=== PATIENT | male | born 1955 | race Caucasian/White ===

== ENCOUNTER 2016-07-09 08:00 | Outpatient (CLI) | payer MEDICAID | END 2016-07-09 08:01 | disposition home or self-care (01) | DX: I48.2 Chronic atrial fibrillation (principal) ==

== ENCOUNTER 2016-07-23 08:00 | Outpatient (CLI) | payer MEDICAID | END 2016-07-23 08:01 | disposition home or self-care (01) | DX: I48.2 Chronic atrial fibrillation (principal) ==

== ENCOUNTER 2016-07-30 09:39 | Outpatient (CLI) | payer MEDICAID | END 2016-07-30 09:40 | disposition home or self-care (01) | DX: I48.2 Chronic atrial fibrillation (principal) ==

== ENCOUNTER 2016-08-06 11:17 | Outpatient (CLI) | payer MEDICAID | END 2016-08-06 11:18 | disposition home or self-care (01) | DX: I48.2 Chronic atrial fibrillation (principal) ==

== ENCOUNTER 2016-08-13 10:34 | Outpatient (CLI) | payer MEDICAID | END 2016-08-13 10:35 | disposition home or self-care (01) | DX: I48.2 Chronic atrial fibrillation (principal) ==

== ENCOUNTER 2016-08-20 08:10 | Outpatient (CLI) | payer MEDICAID | END 2016-08-20 08:11 | disposition home or self-care (01) | DX: I48.2 Chronic atrial fibrillation (principal) ==

== ENCOUNTER 2016-08-20 08:15 | Outpatient (CLI) | payer MEDICAID | END 2016-08-20 08:16 | disposition home or self-care (01) | DX: E11.9 Type 2 diabetes mellitus without complications (principal) ==

== ENCOUNTER 2016-09-02 15:52 | Outpatient (CLI) | payer MEDICAID | END 2016-09-02 15:53 | disposition home or self-care (01) | DX: I48.2 Chronic atrial fibrillation (principal) ==

== ENCOUNTER 2016-09-10 09:11 | Outpatient (CLI) | payer MEDICAID | END 2016-09-10 09:12 | disposition home or self-care (01) | DX: I48.2 Chronic atrial fibrillation (principal) ==

== ENCOUNTER 2016-09-17 15:14 | Outpatient (CLI) | payer MEDICAID | END 2016-09-17 15:15 | disposition home or self-care (01) | DX: I48.2 Chronic atrial fibrillation (principal) ==

== ENCOUNTER 2016-10-01 11:04 | Outpatient (CLI) | payer MEDICAID | END 2016-10-01 11:05 | disposition home or self-care (01) | DX: I48.2 Chronic atrial fibrillation (principal) ==

== ENCOUNTER 2016-10-15 08:00 | Outpatient (CLI) | payer MEDICAID | END 2016-10-15 08:01 | disposition home or self-care (01) | DX: I48.2 Chronic atrial fibrillation (principal) ==

== ENCOUNTER 2016-10-22 10:13 | Outpatient (CLI) | payer MEDICAID | END 2016-10-22 10:14 | disposition home or self-care (01) | DX: I48.2 Chronic atrial fibrillation (principal) ==

== ENCOUNTER 2016-11-05 10:10 | Outpatient (CLI) | payer MEDICAID | END 2016-11-05 10:11 | disposition home or self-care (01) | DX: I48.2 Chronic atrial fibrillation (principal) ==

== ENCOUNTER 2016-11-12 11:03 | Outpatient (CLI) | payer MEDICAID | END 2016-11-12 11:04 | disposition home or self-care (01) | DX: I48.2 Chronic atrial fibrillation (principal) ==

== ENCOUNTER 2016-11-26 15:18 | Outpatient (CLI) | payer MEDICAID | END 2016-11-26 15:19 | disposition home or self-care (01) | LOC: LAB.N 15:18 | PROVIDERS: ATTEND Internal Medicine Cardiovascular Disease | DX: I48.2 Chronic atrial fibrillation (principal) | CPT/HCPCS: 85610 ==

== ENCOUNTER 2016-12-03 10:04 | Outpatient (CLI) | payer MEDICAID | END 2016-12-03 10:05 | disposition home or self-care (01) | DX: I48.2 Chronic atrial fibrillation (principal) ==

== ENCOUNTER 2016-12-17 10:47 | Outpatient (CLI) | payer MEDICAID | END 2016-12-17 10:48 | disposition home or self-care (01) | LOC: LAB.N 10:47 | PROVIDERS: ATTEND Internal Medicine Cardiovascular Disease | DX: I48.2 Chronic atrial fibrillation (principal) | CPT/HCPCS: 85610 ==

== ENCOUNTER 2016-12-24 08:00 | Outpatient (CLI) | payer MEDICAID | END 2016-12-24 08:01 | disposition home or self-care (01) | LOC: LAB.N 08:00 | PROVIDERS: ATTEND Internal Medicine Cardiovascular Disease | DX: I48.2 Chronic atrial fibrillation (principal) | CPT/HCPCS: 85610 ==

== ENCOUNTER 2016-12-24 08:00 | Outpatient (CLI) | payer MEDICAID ==
[2016-12-24 13:53] LABS: HEMOGLOBIN A1C 0.75 g/dL
== END 2016-12-24 08:01 | disposition home or self-care (01) ==
LOC: LAB.N 08:00
PROVIDERS: ATTEND Nurse Practitioner Gerontology
DX: E11.9 Type 2 diabetes mellitus without complications (principal)
CPT/HCPCS: 36415; 83036; 85610

== ENCOUNTER 2017-01-07 15:44 | Outpatient (CLI) | payer MEDICAID | END 2017-01-07 15:45 | disposition home or self-care (01) | LOC: LAB.N 15:44 | PROVIDERS: ATTEND Internal Medicine Cardiovascular Disease | DX: I48.2 Chronic atrial fibrillation (principal) | CPT/HCPCS: 85610 ==

== ENCOUNTER 2017-01-21 08:00 | Outpatient (CLI) | payer MEDICAID | END 2017-01-21 08:01 | disposition home or self-care (01) | LOC: LAB.N 08:00 | PROVIDERS: ATTEND Internal Medicine Cardiovascular Disease | DX: I48.2 Chronic atrial fibrillation (principal) | CPT/HCPCS: 85610 ==

== ENCOUNTER 2017-01-31 17:37 | Outpatient (CLI) | payer MEDICAID | END 2017-01-31 17:38 | disposition EMS.NT | LOC: EMS 17:37 | PROVIDERS: ATTEND Surgery | DX: S61.211A Laceration without foreign body of left index finger without damage to nail, initial encounter (principal); W26.8XXA Contact with other sharp object(s), not elsewhere classified, initial encounter ==

== ENCOUNTER 2017-01-31 17:50 | Emergency (ER) | payer MEDICAID ==
[2017-01-31 17:59] VITALS: BP 146/87
[2017-01-31] MEDS ORDERED: BUFFERED LIDOCAINE 10 ML SYRINGE ONE (18:35)
--- NOTE | 2017-01-31 18:42 | ED Physician Documentation ---
PD HPI UPPER EXT INJURY - Stated complaint Stated Complaint: LEFT FINGER LAC - Chief complaint Chief Complaint: Laceration - History obtained from History obtained from: Patient - History of Present Illness Location: Other (Left handed gentleman who is up-to-date on tetanus cut his left index finger on a can help pressing down on the garbage at home just prior to arrival.) Review of Systems Constitutional: reports: Reviewed and negative Throat: reports: Reviewed and negative Cardiac: reports: Reviewed and negative PD PAST MEDICAL HISTORY - Past Medical History Cardiovascular: Congestive heart failure, Coronary artery disease, [place] Respiratory: COPD Endocrine/Autoimmune: Type 2 diabetes - Past Surgical History Past Surgical History: Yes Cardiovascular: Coronary stent - Present Medications Home Medications: Ambulatory Orders Medication Instructions Recorded Confirmed Albuterol [Ventolin Hfa] 2 puffs INH Q4H PRN #1 inhaler 06/25/14 01/31/17 Aspirin 81 mg DAILY 06/25/14 01/31/17 Carvedilol 25 mg BID 06/25/14 01/31/17 Lisinopril [Zestril] 5 mg DAILY 06/25/14 01/31/17 Statin DAILY 06/25/14 06/25/14 Warfarin [Coumadin] 5 mg DAILY 06/25/14 01/31/17 metFORMIN [Glucophage] 500 mg BID 06/25/14 01/31/17 - Allergies Allergies/Adverse Reactions: Allergies Allergy/AdvReac Type Severity Reaction Status Date / Time No Known Drug Allergies Allergy Verified 06/25/14 14:11 - Social History Does the pt smoke?: No Smoking Status: Never smoker Does the pt drink ETOH?: No Does the pt have substance abuse?: No PD ED PE NORMAL - Vitals Vital signs reviewed: Yes - General General: Alert and oriented X 3, No acute distress - Extremities Extremities: Other (1 cm laceration on the dorsal surface of the left second finger at the level of the PIP on the radial side with normal extensor tendon function and neurovascular intact to the tip.) - Neuro Neuro: Alert and oriented X 3, Normal speech - Psych Psych: Normal mood, Normal affect Results - Vitals Vitals: Vital Signs - 24 hr 01/31/17 17:56 Temperature 36.7 C Heart Rate 91 Respiratory 18 Rate Blood Pressure 146/87 H O2 Saturation 98 Oxygen O2 Source Room air Procedures - Laceration (location) Left second finger Length in cm: 1 Wound type: Linear Neurovascular status: Sensory intact, Motor intact, Vascular intact Tendon involvement: Tendon intact Anesthesia: Lidocaine 1%, With bicarb Wound Preparation: Betadine, Irrigated copiously NS Skin layer closure: Nylon, Size #-0 - enter number (4-0), Sutures - enter # (3) Other: Tetanus UTD Complexity: Simple Departure - Departure Disposition: 01 Home, Self Care Clinical Impression: Laceration Condition: Good Record reviewed to determine appropriate education?: Yes Instructions: ED Laceration Hand Comments: Come back for any signs of infection which would include: Redness, swelling, drainage, increased pain, or fevers. Follow-up with your physician in 10-14 days for suture removal. Your blood pressure was elevated today on check into the emergency department. This does not mean that you have hypertension, it is a common phenomenon to come to the emergency department and have elevated blood pressure. I recommend that she see her primary care physician within the week to have it rechecked when you are feeling better.
== END 2017-01-31 19:00 | disposition home or self-care (01) ==
LOC: ED 17:50
DX: S61.211A Laceration without foreign body of left index finger without damage to nail, initial encounter (principal); W26.8XXA Contact with other sharp object(s), not elsewhere classified, initial encounter; Y92.010 Kitchen of single-family (private) house as the place of occurrence of the external cause; I50.9 Heart failure, unspecified; I25.2 Old myocardial infarction; I25.10 Atherosclerotic heart disease of native coronary artery without angina pectoris; J44.9 Chronic obstructive pulmonary disease, unspecified; E11.9 Type 2 diabetes mellitus without complications; Z79.84 Long term (current) use of oral hypoglycemic drugs; Z79.01 Long term (current) use of anticoagulants; Z79.82 Long term (current) use of aspirin
CPT/HCPCS: 12001; 99282

== ENCOUNTER 2017-02-04 08:47 | Outpatient (CLI) | payer MEDICAID | END 2017-02-04 08:48 | disposition home or self-care (01) | LOC: LAB.N 08:47 | PROVIDERS: ATTEND Internal Medicine Cardiovascular Disease | DX: I48.2 Chronic atrial fibrillation (principal) | CPT/HCPCS: 85610 ==

== ENCOUNTER 2017-02-11 08:00 | Outpatient (CLI) | payer MEDICAID | END 2017-02-11 08:01 | disposition home or self-care (01) | LOC: LAB.N 08:00 | PROVIDERS: ATTEND Internal Medicine Cardiovascular Disease | DX: I48.2 Chronic atrial fibrillation (principal) | CPT/HCPCS: 85610 ==

== ENCOUNTER 2017-02-23 08:17 | Outpatient (CLI) | payer MEDICAID | END 2017-02-23 08:18 | disposition home or self-care (01) | LOC: LAB.N 08:17 | PROVIDERS: ATTEND Internal Medicine Cardiovascular Disease | DX: I48.2 Chronic atrial fibrillation (principal) | CPT/HCPCS: 85610 ==

== ENCOUNTER 2017-03-18 10:20 | Outpatient (CLI) | payer MEDICAID | END 2017-03-18 10:21 | disposition home or self-care (01) | LOC: LAB.N 10:20 | PROVIDERS: ATTEND Internal Medicine Cardiovascular Disease | DX: I48.2 Chronic atrial fibrillation (principal) | CPT/HCPCS: 85610 ==

== ENCOUNTER 2017-03-31 08:14 | Outpatient (CLI) | payer MEDICAID | END 2017-03-31 08:15 | disposition home or self-care (01) | LOC: LAB.N 08:14 | PROVIDERS: ATTEND Internal Medicine Cardiovascular Disease | DX: I48.2 Chronic atrial fibrillation (principal) | CPT/HCPCS: 85610 ==

== ENCOUNTER 2017-04-08 15:29 | Outpatient (CLI) | payer MEDICAID | END 2017-04-08 15:30 | disposition home or self-care (01) | LOC: LAB.N 15:29 | PROVIDERS: ATTEND Nurse Practitioner Gerontology | DX: Z79.01 Long term (current) use of anticoagulants (principal) | CPT/HCPCS: 85610 ==

== ENCOUNTER 2017-04-22 11:03 | Outpatient (CLI) | payer MEDICAID | END 2017-04-22 11:04 | disposition home or self-care (01) | LOC: LAB.N 11:03 | PROVIDERS: ATTEND Nurse Practitioner Gerontology | DX: I48.2 Chronic atrial fibrillation (principal) | CPT/HCPCS: 85610 ==

== ENCOUNTER 2017-04-29 09:56 | Outpatient (CLI) | payer MEDICAID | END 2017-04-29 09:57 | disposition home or self-care (01) | LOC: LAB.N 09:56 | PROVIDERS: ATTEND Nurse Practitioner Gerontology | DX: I48.2 Chronic atrial fibrillation (principal) | CPT/HCPCS: 85610 ==

== ENCOUNTER 2017-05-05 14:10 | Outpatient (CLI) | payer MEDICAID | END 2017-05-05 14:11 | LOC: LAB.N 14:10 | PROVIDERS: ATTEND Nurse Practitioner Gerontology | DX: I48.2 Chronic atrial fibrillation (principal) | CPT/HCPCS: 85610 ==

== ENCOUNTER 2017-05-20 09:49 | Outpatient (CLI) | payer MEDICAID ==
[2017-05-20 14:12] LABS: HEMOGLOBIN A1C 0.69 g/dL
[2017-05-23 15:11] LABS: TEST RESULT REPORT
== END 2017-05-20 09:50 | disposition home or self-care (01) ==
LOC: LAB.N 09:49
PROVIDERS: ATTEND Nurse Practitioner Gerontology
DX: R05 Cough (principal); I48.2 Chronic atrial fibrillation; E11.9 Type 2 diabetes mellitus without complications
CPT/HCPCS: 36415; 81599; 83036; 85610; 86003

== ENCOUNTER 2017-06-03 15:14 | Outpatient (CLI) | payer MEDICAID | END 2017-06-03 15:15 | disposition home or self-care (01) | LOC: LAB.N 15:14 | PROVIDERS: ATTEND Nurse Practitioner Gerontology | DX: I48.2 Chronic atrial fibrillation (principal) | CPT/HCPCS: 85610 ==

== ENCOUNTER 2017-06-10 13:54 | Outpatient (CLI) | payer MEDICAID | END 2017-06-10 13:55 | disposition home or self-care (01) | LOC: LAB.N 13:54 | PROVIDERS: ATTEND Nurse Practitioner Gerontology | DX: I48.2 Chronic atrial fibrillation (principal) | CPT/HCPCS: 85610 ==

== ENCOUNTER 2017-07-01 11:02 | Outpatient (CLI) | payer MEDICAID | END 2017-07-01 11:03 | disposition home or self-care (01) | LOC: LAB.N 11:02 | PROVIDERS: ATTEND Nurse Practitioner Gerontology | DX: I48.2 Chronic atrial fibrillation (principal) | CPT/HCPCS: 85610 ==

== ENCOUNTER 2017-07-08 15:25 | Outpatient (CLI) | payer MEDICAID | END 2017-07-08 15:26 | disposition home or self-care (01) | LOC: LAB.N 15:25 | PROVIDERS: ATTEND Nurse Practitioner Gerontology | DX: I48.2 Chronic atrial fibrillation (principal) | CPT/HCPCS: 85610 ==

== ENCOUNTER 2017-07-15 08:00 | Outpatient (CLI) | payer MEDICAID | END 2017-07-15 08:01 | disposition home or self-care (01) | LOC: LAB.N 08:00 | PROVIDERS: ATTEND Nurse Practitioner Gerontology | DX: I48.2 Chronic atrial fibrillation (principal) | CPT/HCPCS: 85610 ==

== ENCOUNTER 2017-07-28 08:00 | Outpatient (CLI) | payer MEDICAID | END 2017-07-28 08:01 | disposition home or self-care (01) | LOC: LAB.N 08:00 | PROVIDERS: ATTEND Nurse Practitioner Gerontology | DX: I48.2 Chronic atrial fibrillation (principal) | CPT/HCPCS: 85610 ==

== ENCOUNTER 2017-08-12 14:12 | Outpatient (CLI) | payer MEDICAID | END 2017-08-12 14:13 | disposition home or self-care (01) | LOC: LAB.N 14:12 | PROVIDERS: ATTEND Nurse Practitioner Gerontology | DX: I48.2 Chronic atrial fibrillation (principal) | CPT/HCPCS: 85610 ==

== ENCOUNTER 2017-08-26 08:00 | Outpatient (CLI) | payer MEDICAID | END 2017-08-26 08:01 | disposition home or self-care (01) | LOC: LAB.N 08:00 | PROVIDERS: ATTEND Nurse Practitioner Gerontology | DX: I48.2 Chronic atrial fibrillation (principal) | CPT/HCPCS: 85610 ==

== ENCOUNTER 2017-09-02 08:52 | Outpatient (CLI) | payer MEDICAID | END 2017-09-02 08:53 | disposition home or self-care (01) | LOC: LAB.N 08:52 | PROVIDERS: ATTEND Nurse Practitioner Gerontology | DX: I48.2 Chronic atrial fibrillation (principal) | CPT/HCPCS: 85610 ==

== ENCOUNTER 2017-09-16 14:33 | Outpatient (CLI) | payer MEDICAID ==
[2017-09-16 19:09] LABS: BASOPHILS % (AUTO) 0.6 %; EOSINOPHILS # (AUTO) 0.2 10^3/uL (0.0-0.7); HGB - HEMOGLOBIN 12.9 g/dL (14.0-18.0); LYMPHOCYTES # (AUTO) 1.7 10^3/uL (1.5-3.5); LYMPHOCYTES % (AUTO) 25.7 %; MEAN CORPUSCULAR HEMOGLOBIN 29.4 pg (27.0-31.0); MEAN CORPUSCULAR HGB CONC 32.9 g/dL (32.0-36.0); MEAN CORPUSCULAR VOLUME 89.5 fL (80.0-94.0); MEAN PLATELET VOLUME 8.4 fL (7.4-11.4); MONOCYTES # (AUTO) 0.6 10^3/uL (0.0-1.0); NEUTROPHILS # (AUTO) 3.9 10^3/uL (1.5-6.6); NEUTROPHILS % (AUTO) 60.7 %; PLT - PLATELET COUNT 216 10^3/uL (130-450); RED BLOOD COUNT 4.37 10^6/uL (4.70-6.10); RED CELL DISTRIBUTION WIDTH 15.2 % (12.0-15.0); WHITE BLOOD COUNT 6.4 x10^3/uL (4.8-10.8)
[2017-09-16 19:36] LABS: ALBUMIN 4.2 g/dL (3.2-5.5); ALBUMIN/GLOBULIN RATIO 1.8 (1.0-2.2); ALKALINE PHOSPHATASE 56 IU/L (42-121); ALT ALANINE AMINOTRANSFERASE 30 IU/L (10-60); AST ASPARTATE AMINOTRANSFERASE 23 IU/L (10-42); BILIRUBIN,TOTAL 0.8 mg/dL (0.2-1.0); BUN - BLOOD UREA NITROGEN 15 mg/dL (6-20); CALCIUM 9.1 mg/dL (8.5-10.3); CARBON DIOXIDE - CO2 25 mmol/L (21-32); CHLORIDE 100 mmol/L (101-111); CHOLESTEROL 100 mg/dL; GFR - MDRD 76 (>89); GLUCOSE 109 mg/dL (70-100); HDL CHOLESTEROL 33 mg/dL; LDL CHOLESTEROL,CALCULATED 27 mg/dL; LDL/HDL RATIO 0.8 (<3.6); SODIUM 132 mmol/L (135-145); TOTAL PROTEIN 6.6 g/dL (6.7-8.2); VLDL CHOLESTEROL 40 mg/dL
[2017-09-16 19:39] LABS: HB2 TOTAL 13.7 g/dL; HEMOGLOBIN A1C 0.65 g/dL; HEMOGLOBIN A1C % 6.5 % (4.6-6.2)
[2017-09-16 19:55] LABS: PSA FREE < 0.005 ng/mL (0.16-2.81); PSA FREE % 50 % (25-100)
== END 2017-09-16 14:34 | disposition home or self-care (01) ==
LOC: LAB.N 14:33
PROVIDERS: ATTEND Nurse Practitioner Gerontology
DX: E78.5 Hyperlipidemia, unspecified (principal); I48.2 Chronic atrial fibrillation; E11.9 Type 2 diabetes mellitus without complications; I10 Essential (primary) hypertension; Z85.46 Personal history of malignant neoplasm of prostate
CPT/HCPCS: 36415; 80053; 80061; 83036; 83721; 84154; 85025; 85610

== ENCOUNTER 2017-09-23 14:45 | Outpatient (CLI) | payer MEDICAID | END 2017-09-23 14:46 | disposition home or self-care (01) | LOC: LAB.N 14:45 | PROVIDERS: ATTEND Nurse Practitioner Gerontology | DX: I48.2 Chronic atrial fibrillation (principal) | CPT/HCPCS: 85610 ==

== ENCOUNTER 2017-09-30 08:00 | Outpatient (CLI) | payer MEDICAID | END 2017-09-30 08:01 | disposition home or self-care (01) | LOC: LAB.N 08:00 | PROVIDERS: ATTEND Nurse Practitioner Gerontology | DX: I48.2 Chronic atrial fibrillation (principal) | CPT/HCPCS: 85610 ==

== ENCOUNTER 2017-10-07 10:39 | Outpatient (CLI) | payer MEDICAID | END 2017-10-07 10:40 | disposition home or self-care (01) | LOC: LAB.N 10:39 | PROVIDERS: ATTEND Nurse Practitioner Gerontology | DX: I48.2 Chronic atrial fibrillation (principal) | CPT/HCPCS: 85610 ==

== ENCOUNTER 2017-10-21 08:00 | Outpatient (CLI) | payer MEDICAID | END 2017-10-21 08:01 | disposition home or self-care (01) | LOC: LAB.N 08:00 | PROVIDERS: ATTEND Nurse Practitioner Gerontology | DX: I48.2 Chronic atrial fibrillation (principal) | CPT/HCPCS: 85610 ==

== ENCOUNTER 2017-11-04 08:00 | Outpatient (CLI) | payer MEDICAID | END 2017-11-04 08:01 | disposition home or self-care (01) | LOC: LAB.N 08:00 | PROVIDERS: ATTEND Nurse Practitioner Gerontology | DX: I48.2 Chronic atrial fibrillation (principal) | CPT/HCPCS: 85610 ==

== ENCOUNTER 2017-11-18 08:00 | Outpatient (CLI) | payer MEDICAID | END 2017-11-18 08:01 | disposition home or self-care (01) | LOC: LAB.N 08:00 | PROVIDERS: ATTEND Nurse Practitioner Gerontology | DX: I48.2 Chronic atrial fibrillation (principal) | CPT/HCPCS: 85610 ==

== ENCOUNTER 2017-11-25 09:00 | Outpatient (CLI) | payer MEDICAID | END 2017-11-25 09:01 | disposition home or self-care (01) | LOC: LAB.N 09:00 | PROVIDERS: ATTEND Nurse Practitioner Gerontology | DX: I48.2 Chronic atrial fibrillation (principal) | CPT/HCPCS: 85610 ==

== ENCOUNTER 2017-12-02 08:00 | Outpatient (CLI) | payer MEDICAID | END 2017-12-02 08:01 | disposition home or self-care (01) | LOC: LAB.N 08:00 | PROVIDERS: ATTEND Nurse Practitioner Gerontology | DX: I48.2 Chronic atrial fibrillation (principal) | CPT/HCPCS: 85610 ==

== ENCOUNTER 2017-12-16 09:12 | Outpatient (CLI) | payer MEDICAID | END 2017-12-16 09:13 | disposition home or self-care (01) | LOC: LAB.N 09:12 | PROVIDERS: ATTEND Nurse Practitioner Gerontology | DX: I48.2 Chronic atrial fibrillation (principal) | CPT/HCPCS: 85610 ==

== ENCOUNTER 2017-12-29 08:00 | Outpatient (CLI) | payer MEDICAID | END 2017-12-29 08:01 | disposition home or self-care (01) | LOC: LAB.N 08:00 | PROVIDERS: ATTEND Nurse Practitioner Gerontology | DX: I48.2 Chronic atrial fibrillation (principal) | CPT/HCPCS: 85610 ==

== ENCOUNTER 2018-01-06 14:10 | Outpatient (CLI) | payer MEDICAID | END 2018-01-06 14:11 | disposition home or self-care (01) | LOC: LAB.N 14:10 | PROVIDERS: ATTEND Nurse Practitioner Gerontology | DX: I48.2 Chronic atrial fibrillation (principal) | CPT/HCPCS: 85610 ==

== ENCOUNTER 2018-01-13 14:35 | Outpatient (CLI) | payer MEDICAID | END 2018-01-13 14:36 | disposition home or self-care (01) | LOC: LAB.N 14:35 | PROVIDERS: ATTEND Nurse Practitioner Gerontology | DX: I48.2 Chronic atrial fibrillation (principal) | CPT/HCPCS: 85610 ==

== ENCOUNTER 2018-01-27 13:55 | Outpatient (CLI) | payer MEDICAID | END 2018-01-27 13:56 | disposition home or self-care (01) | LOC: LAB.N 13:55 | PROVIDERS: ATTEND Nurse Practitioner Gerontology | DX: I48.2 Chronic atrial fibrillation (principal) | CPT/HCPCS: 85610 ==

== ENCOUNTER 2018-02-10 11:47 | Outpatient (CLI) | payer MEDICAID | END 2018-02-10 11:48 | disposition home or self-care (01) | LOC: LAB.N 11:47 | PROVIDERS: ATTEND Nurse Practitioner Gerontology | DX: I48.2 Chronic atrial fibrillation (principal) | CPT/HCPCS: 85610 ==

== ENCOUNTER 2018-02-24 08:26 | Outpatient (CLI) | payer MEDICAID | END 2018-02-24 08:27 | disposition home or self-care (01) | LOC: LAB.N 08:26 | PROVIDERS: ATTEND Nurse Practitioner Gerontology | DX: I48.2 Chronic atrial fibrillation (principal) | CPT/HCPCS: 85610 ==

== ENCOUNTER 2018-03-03 08:48 | Outpatient (CLI) | payer MEDICAID | END 2018-03-03 08:49 | disposition home or self-care (01) | LOC: LAB.N 08:48 | PROVIDERS: ATTEND Nurse Practitioner Gerontology | DX: I48.2 Chronic atrial fibrillation (principal) | CPT/HCPCS: 85610 ==

== ENCOUNTER 2018-03-10 08:31 | Outpatient (CLI) | payer MEDICAID | END 2018-03-10 08:32 | disposition home or self-care (01) | LOC: LAB.N 08:31 | PROVIDERS: ATTEND Nurse Practitioner Gerontology | DX: I48.2 Chronic atrial fibrillation (principal) | CPT/HCPCS: 85610 ==

== ENCOUNTER 2018-03-31 09:42 | Outpatient (CLI) | payer MEDICAID ==
[2018-03-31 12:26] LABS: CALCIUM 9.2 mg/dL (8.5-10.3); CREATININE 0.9 mg/dL (0.6-1.2)
[2018-03-31 12:42] LABS: HB2 TOTAL 14.2 g/dL; HEMOGLOBIN A1C 0.71 g/dL; HEMOGLOBIN A1C % 6.7 % (4.6-6.2)
== END 2018-03-31 09:43 | disposition home or self-care (01) ==
LOC: LAB.N 09:42
PROVIDERS: ATTEND Nurse Practitioner Gerontology
DX: E11.9 Type 2 diabetes mellitus without complications (principal); I48.2 Chronic atrial fibrillation
CPT/HCPCS: 36415; 80048; 83036; 85610

== ENCOUNTER 2018-04-06 14:04 | Outpatient (CLI) | payer MEDICAID | END 2018-04-06 14:05 | disposition home or self-care (01) | LOC: LAB.N 14:04 | PROVIDERS: ATTEND Nurse Practitioner Gerontology | DX: I48.2 Chronic atrial fibrillation (principal) | CPT/HCPCS: 85610 ==

== ENCOUNTER 2018-04-14 08:30 | Outpatient (CLI) | payer MEDICAID | END 2018-04-14 08:31 | disposition home or self-care (01) | LOC: LAB.N 08:30 | PROVIDERS: ATTEND Nurse Practitioner Gerontology | DX: I48.2 Chronic atrial fibrillation (principal) | CPT/HCPCS: 85610 ==

== ENCOUNTER 2018-04-28 08:03 | Outpatient (CLI) | payer MEDICAID | END 2018-04-28 08:04 | disposition home or self-care (01) | LOC: LAB.N 08:03 | PROVIDERS: ATTEND Nurse Practitioner Gerontology | DX: I48.2 Chronic atrial fibrillation (principal) | CPT/HCPCS: 85610 ==

== ENCOUNTER 2018-05-05 09:29 | Outpatient (CLI) | payer MEDICAID | END 2018-05-05 09:30 | disposition home or self-care (01) | LOC: LAB.N 09:29 | PROVIDERS: ATTEND Nurse Practitioner Gerontology | DX: I48.2 Chronic atrial fibrillation (principal) | CPT/HCPCS: 85610 ==

== ENCOUNTER 2018-05-19 11:43 | Outpatient (CLI) | payer MEDICAID | END 2018-05-19 11:44 | disposition home or self-care (01) | LOC: LAB.N 11:43 | PROVIDERS: ATTEND Nurse Practitioner Gerontology | DX: I48.2 Chronic atrial fibrillation (principal) | CPT/HCPCS: 85610 ==

== ENCOUNTER 2018-06-02 08:00 | Outpatient (CLI) | payer MEDICAID | END 2018-06-02 23:59 | disposition home or self-care (01) | LOC: LAB.N 08:00 | PROVIDERS: ATTEND Nurse Practitioner Gerontology | DX: I48.2 Chronic atrial fibrillation (principal) | CPT/HCPCS: 85610 ==

== ENCOUNTER 2018-06-09 08:00 | Outpatient (CLI) | payer MEDICAID | END 2018-06-09 23:59 | LOC: LAB.N 08:00 | PROVIDERS: ATTEND Nurse Practitioner Gerontology | DX: I48.2 Chronic atrial fibrillation (principal) | CPT/HCPCS: 85610 ==

== ENCOUNTER 2018-06-16 08:00 | Outpatient (CLI) | payer MEDICAID | END 2018-06-16 23:59 | disposition home or self-care (01) | LOC: LAB.N 08:00 | PROVIDERS: ATTEND Nurse Practitioner Gerontology | DX: I48.2 Chronic atrial fibrillation (principal) | CPT/HCPCS: 85610 ==

== ENCOUNTER 2018-06-30 14:28 | Outpatient (CLI) | payer MEDICAID | END 2018-06-30 23:59 | disposition home or self-care (01) | LOC: LAB.N 14:28 | PROVIDERS: ATTEND Nurse Practitioner Gerontology | DX: I48.2 Chronic atrial fibrillation (principal) | CPT/HCPCS: 85610 ==

== ENCOUNTER 2018-07-07 09:00 | Outpatient (CLI) | payer MEDICAID ==
[2018-07-07 14:41] LABS: BASOPHILS % (AUTO) 0.5 %; EOSINOPHILS # (AUTO) 0.2 10^3/uL (0.0-0.7); EOSINOPHILS % (AUTO) 2.7 %; HGB - HEMOGLOBIN 13.9 g/dL (14.0-18.0); LYMPHOCYTES # (AUTO) 1.7 10^3/uL (1.5-3.5); LYMPHOCYTES % (AUTO) 29.5 %; MEAN CORPUSCULAR HEMOGLOBIN 29.1 pg (27.0-31.0); MEAN CORPUSCULAR HGB CONC 33.3 g/dL (32.0-36.0); MEAN CORPUSCULAR VOLUME 87.4 fL (80.0-94.0); MEAN PLATELET VOLUME 8.4 fL (7.4-11.4); MONOCYTES # (AUTO) 0.5 10^3/uL (0.0-1.0); MONOCYTES % (AUTO) 9.8 %; NEUTROPHILS # (AUTO) 3.2 10^3/uL (1.5-6.6); NEUTROPHILS % (AUTO) 57.5 %; PLT - PLATELET COUNT 236 10^3/uL (130-450); RED BLOOD COUNT 4.78 10^6/uL (4.70-6.10); RED CELL DISTRIBUTION WIDTH 14.4 % (12.0-15.0); WHITE BLOOD COUNT 5.6 x10^3/uL (4.8-10.8)
[2018-07-07 15:07] LABS: CALCIUM 8.9 mg/dL (8.5-10.3); CARBON DIOXIDE - CO2 27 mmol/L (21-32); CHLORIDE 103 mmol/L (101-111); GLUCOSE 117 mg/dL (70-100); SODIUM 137 mmol/L (135-145)
[2018-07-07 16:22] LABS: ALBUMIN 4.1 g/dL (3.2-5.5); ALBUMIN/GLOBULIN RATIO 1.6 (1.0-2.2); ALKALINE PHOSPHATASE 62 IU/L (42-121); ALT ALANINE AMINOTRANSFERASE 32 IU/L (10-60); AST ASPARTATE AMINOTRANSFERASE 20 IU/L (10-42); BILIRUBIN,TOTAL 0.8 mg/dL (0.2-1.0); BUN - BLOOD UREA NITROGEN 16 mg/dL (6-20); CHOL/HDL RATIO 3.2 (<5.0); CHOLESTEROL 104 mg/dL; GFR - MDRD 76 (>89); HDL CHOLESTEROL 33 mg/dL; LDL CHOLESTEROL,CALCULATED 42 mg/dL; LDL/HDL RATIO 1.3 (<3.6); TOTAL PROTEIN 6.7 g/dL (6.7-8.2); VLDL CHOLESTEROL 29 mg/dL
== END 2018-07-07 23:59 | disposition home or self-care (01) ==
LOC: LAB.N 09:00
PROVIDERS: ATTEND Nurse Practitioner Gerontology
DX: I48.2 Chronic atrial fibrillation (principal); E78.5 Hyperlipidemia, unspecified; E11.9 Type 2 diabetes mellitus without complications; I10 Essential (primary) hypertension
CPT/HCPCS: 36415; 80053; 80061; 83721; 85025; 85610

== ENCOUNTER 2018-07-14 08:00 | Outpatient (CLI) | payer MEDICAID | END 2018-07-14 23:59 | disposition home or self-care (01) | LOC: LAB.N 08:00 | PROVIDERS: ATTEND Nurse Practitioner Gerontology | DX: I48.2 Chronic atrial fibrillation (principal) | CPT/HCPCS: 85610 ==

== ENCOUNTER 2018-07-24 08:00 | Outpatient (CLI) | payer MEDICAID | END 2018-07-24 23:59 | disposition home or self-care (01) | LOC: LAB.N 08:00 | PROVIDERS: ATTEND Nurse Practitioner Gerontology | DX: Z79.01 Long term (current) use of anticoagulants (principal) | CPT/HCPCS: 85610 ==

== ENCOUNTER 2018-07-31 08:00 | Outpatient (CLI) | payer MEDICAID ==
[2018-07-31 13:50] LABS: HB2 TOTAL 13.9 g/dL; HEMOGLOBIN A1C 0.61 g/dL; HEMOGLOBIN A1C % 6.2 % (4.6-6.2)
== END 2018-07-31 08:01 ==
LOC: LAB.N 08:00
PROVIDERS: ATTEND Nurse Practitioner Gerontology
DX: I48.2 Chronic atrial fibrillation (principal); E11.9 Type 2 diabetes mellitus without complications
CPT/HCPCS: 36415; 83036; 85610

== ENCOUNTER 2018-08-10 15:07 | Outpatient (CLI) | payer MEDICAID | END 2018-08-10 23:59 | disposition home or self-care (01) | LOC: LAB.N 15:07 | PROVIDERS: ATTEND Nurse Practitioner Gerontology | DX: I48.2 Chronic atrial fibrillation (principal) | CPT/HCPCS: 85610 ==

== ENCOUNTER 2018-08-25 08:00 | Outpatient (CLI) | payer MEDICAID | END 2018-08-25 23:59 | disposition home or self-care (01) | LOC: LAB.N 08:00 | PROVIDERS: ATTEND Nurse Practitioner Gerontology | DX: I48.2 Chronic atrial fibrillation (principal) | CPT/HCPCS: 85610 ==

== ENCOUNTER 2018-09-08 08:00 | Outpatient (CLI) | payer MEDICAID | END 2018-09-08 23:59 | disposition home or self-care (01) | LOC: LAB.N 08:00 | PROVIDERS: ATTEND Nurse Practitioner Gerontology | DX: I48.2 Chronic atrial fibrillation (principal) | CPT/HCPCS: 85610 ==

== ENCOUNTER 2018-10-03 14:18 | Outpatient (CLI) | payer MEDICAID | END 2018-10-03 23:59 | disposition home or self-care (01) | LOC: LAB.N 14:18 | PROVIDERS: ATTEND Nurse Practitioner Gerontology | DX: I48.2 Chronic atrial fibrillation (principal); M10.9 Gout, unspecified | CPT/HCPCS: 36415; 84550; 85610 ==

== ENCOUNTER 2018-10-13 08:00 | Outpatient (CLI) | payer MEDICAID | END 2018-10-13 23:59 | disposition home or self-care (01) | LOC: LAB.N 08:00 | PROVIDERS: ATTEND Nurse Practitioner Gerontology | DX: I48.2 Chronic atrial fibrillation (principal) | CPT/HCPCS: 85610 ==

== ENCOUNTER 2018-10-20 08:00 | Outpatient (CLI) | payer MEDICAID | END 2018-10-20 23:59 | disposition home or self-care (01) | LOC: LAB.N 08:00 | PROVIDERS: ATTEND Nurse Practitioner Gerontology | DX: I48.2 Chronic atrial fibrillation (principal) | CPT/HCPCS: 85610 ==

== ENCOUNTER 2018-10-31 08:00 | Outpatient (CLI) | payer MEDICAID ==
[2018-10-31 13:04] LABS: HB2 TOTAL 15.5 g/dL; HEMOGLOBIN A1C 0.67 g/dL; HEMOGLOBIN A1C % 6.1 % (4.6-6.2)
== END 2018-10-31 23:59 | disposition home or self-care (01) ==
LOC: LAB.N 08:00
PROVIDERS: ATTEND Nurse Practitioner Gerontology
DX: E11.9 Type 2 diabetes mellitus without complications (principal); I48.2 Chronic atrial fibrillation
CPT/HCPCS: 36415; 83036; 85610

== ENCOUNTER 2018-11-17 10:24 | Outpatient (CLI) | payer MEDICAID | END 2018-11-17 23:59 | disposition home or self-care (01) | LOC: LAB.N 10:24 | PROVIDERS: ATTEND Nurse Practitioner Gerontology | DX: I48.2 Chronic atrial fibrillation (principal) | CPT/HCPCS: 85610 ==

== ENCOUNTER 2018-12-01 08:00 | Outpatient (CLI) | payer MEDICAID | END 2018-12-01 23:59 | disposition home or self-care (01) | LOC: LAB.N 08:00 | PROVIDERS: ATTEND Nurse Practitioner Gerontology | DX: I48.2 Chronic atrial fibrillation (principal) | CPT/HCPCS: 85610 ==

== ENCOUNTER 2018-12-08 08:00 | Outpatient (CLI) | payer MEDICAID | END 2018-12-08 23:59 | disposition home or self-care (01) | LOC: LAB.N 08:00 | PROVIDERS: ATTEND Nurse Practitioner Gerontology | DX: I48.2 Chronic atrial fibrillation (principal) | CPT/HCPCS: 85610 ==

== ENCOUNTER 2018-12-22 08:00 | Outpatient (CLI) | payer MEDICAID | END 2018-12-22 23:59 | disposition home or self-care (01) | LOC: LAB.N 08:00 | PROVIDERS: ATTEND Nurse Practitioner Gerontology | DX: I48.2 Chronic atrial fibrillation (principal) | CPT/HCPCS: 85610 ==

== ENCOUNTER 2019-01-02 09:49 | Outpatient (CLI) | payer MEDICAID | END 2019-01-02 23:59 | disposition home or self-care (01) | LOC: LAB.N 09:49 | PROVIDERS: ATTEND Nurse Practitioner Gerontology | DX: I48.2 Chronic atrial fibrillation (principal) | CPT/HCPCS: 85610 ==

== ENCOUNTER 2019-01-19 08:00 | Outpatient (CLI) | payer MEDICAID | END 2019-01-19 23:59 | disposition home or self-care (01) | LOC: LAB.N 08:00 | PROVIDERS: ATTEND Nurse Practitioner Gerontology | DX: I48.2 Chronic atrial fibrillation (principal) | CPT/HCPCS: 85610 ==

== ENCOUNTER 2019-02-02 | Outpatient (CLI) | payer MEDICAID | END 2019-02-02 23:59 | disposition home or self-care (01) | DX: I48.2 Chronic atrial fibrillation (principal) ==

== ENCOUNTER 2019-02-09 11:19 | Outpatient (CLI) | payer MEDICAID | END 2019-02-09 23:59 | disposition home or self-care (01) | LOC: LAB.N 11:19 | PROVIDERS: ATTEND Nurse Practitioner Gerontology | DX: I48.2 Chronic atrial fibrillation (principal) | CPT/HCPCS: 85610 ==

== ENCOUNTER 2019-02-21 09:33 | Outpatient (CLI) | payer MEDICAID | END 2019-02-21 23:59 | disposition home or self-care (01) | LOC: LAB.N 09:33 | PROVIDERS: ATTEND Nurse Practitioner Gerontology | DX: I48.2 Chronic atrial fibrillation (principal) | CPT/HCPCS: 85610 ==

== ENCOUNTER 2019-03-02 08:00 | Outpatient (CLI) | payer MEDICAID | END 2019-03-02 23:59 | disposition home or self-care (01) | LOC: LAB.N 08:00 | PROVIDERS: ATTEND Nurse Practitioner Gerontology | DX: I48.2 Chronic atrial fibrillation (principal) | CPT/HCPCS: 85610 ==

== ENCOUNTER 2019-03-09 08:00 | Outpatient (CLI) | payer MEDICAID | END 2019-03-09 23:59 | disposition home or self-care (01) | LOC: LAB.N 08:00 | PROVIDERS: ATTEND Nurse Practitioner Gerontology | DX: I48.2 Chronic atrial fibrillation (principal) | CPT/HCPCS: 85610 ==

== ENCOUNTER 2019-03-16 08:00 | Outpatient (CLI) | payer MEDICAID | END 2019-03-16 23:59 | disposition home or self-care (01) | LOC: LAB.N 08:00 | PROVIDERS: ATTEND Nurse Practitioner Gerontology | DX: I48.2 Chronic atrial fibrillation (principal) | CPT/HCPCS: 85610 ==

== ENCOUNTER 2019-03-23 08:00 | Outpatient (CLI) | payer MEDICAID | END 2019-03-23 23:59 | disposition home or self-care (01) | LOC: LAB.N 08:00 | PROVIDERS: ATTEND Nurse Practitioner Gerontology | DX: I48.2 Chronic atrial fibrillation (principal) | CPT/HCPCS: 85610 ==

== ENCOUNTER 2019-03-30 15:08 | Outpatient (CLI) | payer MEDICAID | END 2019-03-30 23:59 | disposition home or self-care (01) | LOC: LAB.N 15:08 | PROVIDERS: ATTEND Nurse Practitioner Gerontology | DX: I48.2 Chronic atrial fibrillation (principal) | CPT/HCPCS: 85610 ==

== ENCOUNTER 2019-04-13 08:00 | Outpatient (CLI) | payer MEDICAID | END 2019-04-13 23:59 | LOC: LAB.N 08:00 | PROVIDERS: ATTEND Nurse Practitioner Gerontology | DX: I48.20 Chronic atrial fibrillation, unspecified (principal) | CPT/HCPCS: 85610 ==

== ENCOUNTER 2019-04-20 07:50 | Outpatient (CLI) | payer MEDICAID ==
[2019-04-20 13:02] LABS: HB2 TOTAL 15.2 g/dL; HEMOGLOBIN A1C 0.63 g/dL; HEMOGLOBIN A1C % 5.9 % (4.6-6.2)
== END 2019-04-20 23:59 | disposition home or self-care (01) ==
LOC: LAB.N 07:50
PROVIDERS: ATTEND Nurse Practitioner Gerontology
DX: E11.9 Type 2 diabetes mellitus without complications (principal); I48.20 Chronic atrial fibrillation, unspecified
CPT/HCPCS: 36415; 83036; 85610

== ENCOUNTER 2019-05-09 08:00 | Outpatient (CLI) | payer MEDICAID | END 2019-05-09 23:59 | disposition home or self-care (01) | LOC: LAB.N 08:00 | PROVIDERS: ATTEND Nurse Practitioner Gerontology | DX: I48.20 Chronic atrial fibrillation, unspecified (principal) | CPT/HCPCS: 85610 ==

== ENCOUNTER 2019-05-18 08:00 | Outpatient (CLI) | payer MEDICAID | END 2019-05-18 23:59 | disposition home or self-care (01) | LOC: LAB.N 08:00 | PROVIDERS: ATTEND Nurse Practitioner Gerontology | DX: I48.20 Chronic atrial fibrillation, unspecified (principal) | CPT/HCPCS: 85610 ==

== ENCOUNTER 2019-06-08 10:27 | Outpatient (CLI) | payer MEDICAID | END 2019-06-08 23:59 | disposition home or self-care (01) | LOC: LAB.N 10:27 | PROVIDERS: ATTEND Nurse Practitioner Gerontology | DX: I48.20 Chronic atrial fibrillation, unspecified (principal) | CPT/HCPCS: 85610 ==

== ENCOUNTER 2019-06-22 14:22 | Outpatient (CLI) | payer MEDICAID | END 2019-06-22 23:59 | disposition home or self-care (01) | LOC: LAB.N 14:22 | PROVIDERS: ATTEND Nurse Practitioner Gerontology | DX: I48.20 Chronic atrial fibrillation, unspecified (principal) | CPT/HCPCS: 85610 ==

== ENCOUNTER 2019-07-13 08:00 | Outpatient (CLI) | payer MEDICAID | END 2019-07-13 23:59 | disposition home or self-care (01) | LOC: LAB.N 08:00 | PROVIDERS: ATTEND Nurse Practitioner Gerontology | DX: I48.20 Chronic atrial fibrillation, unspecified (principal) | CPT/HCPCS: 85610 ==

== ENCOUNTER 2019-07-27 08:00 | Outpatient (CLI) | payer MEDICAID | END 2019-07-27 23:59 | disposition home or self-care (01) | LOC: LAB.N 08:00 | PROVIDERS: ATTEND Nurse Practitioner Gerontology | DX: I48.20 Chronic atrial fibrillation, unspecified (principal) | CPT/HCPCS: 85610 ==

== ENCOUNTER 2019-08-10 08:00 | Outpatient (CLI) | payer MEDICAID | END 2019-08-10 23:59 | disposition home or self-care (01) | LOC: LAB.N 08:00 | PROVIDERS: ATTEND Nurse Practitioner Gerontology | DX: I48.20 Chronic atrial fibrillation, unspecified (principal) | CPT/HCPCS: 85610 ==

== ENCOUNTER 2019-08-17 08:00 | Outpatient (CLI) | payer MEDICAID | END 2019-08-17 23:59 | disposition home or self-care (01) | LOC: LAB.N 08:00 | PROVIDERS: ATTEND Nurse Practitioner Gerontology | DX: I48.20 Chronic atrial fibrillation, unspecified (principal) | CPT/HCPCS: 85610 ==

== ENCOUNTER 2019-09-03 08:22 | Outpatient (CLI) | payer MEDICAID ==
[2019-09-03 13:30] LABS: ALBUMIN/GLOBULIN RATIO 1.5 (1.0-2.2); ALKALINE PHOSPHATASE 52 IU/L (42-121); ALT ALANINE AMINOTRANSFERASE 17 IU/L (10-60); AST ASPARTATE AMINOTRANSFERASE 13 IU/L (10-42); BILIRUBIN,TOTAL 0.8 mg/dL (0.2-1.0); BUN - BLOOD UREA NITROGEN 16 mg/dL (6-20); CALCIUM 9.1 mg/dL (8.5-10.3); CARBON DIOXIDE - CO2 27 mmol/L (21-32); CHLORIDE 104 mmol/L (101-111); CHOL/HDL RATIO 3.1 (<5.0); CHOLESTEROL 139 mg/dL; CREATININE 0.8 mg/dL (0.6-1.2); GFR - MDRD 98 (>89); GLUCOSE 129 mg/dL (70-100); HDL CHOLESTEROL 45 mg/dL; LDL CHOLESTEROL,CALCULATED 67 mg/dL; LDL/HDL RATIO 1.5 (<3.6); SODIUM 140 mmol/L (135-145); TOTAL PROTEIN 6.7 g/dL (6.7-8.2); VLDL CHOLESTEROL 27 mg/dL
== END 2019-09-03 23:59 | disposition home or self-care (01) ==
LOC: LAB.N 08:22
PROVIDERS: ATTEND Nurse Practitioner Gerontology
DX: E78.5 Hyperlipidemia, unspecified (principal); Z12.11 Encounter for screening for malignant neoplasm of colon; I48.0 Paroxysmal atrial fibrillation
CPT/HCPCS: 36415; 80053; 80061; 83721; 85610

== ENCOUNTER 2019-09-14 11:18 | Outpatient (CLI) | payer MEDICAID | END 2019-09-14 23:59 | disposition home or self-care (01) | LOC: LAB.N 11:18 | PROVIDERS: ATTEND Nurse Practitioner Gerontology | DX: I48.20 Chronic atrial fibrillation, unspecified (principal) | CPT/HCPCS: 85610 ==

== ENCOUNTER 2019-09-28 08:00 | Outpatient (CLI) | payer MEDICAID | END 2019-09-28 23:59 | disposition home or self-care (01) | LOC: LAB.N 08:00 | PROVIDERS: ATTEND Nurse Practitioner Gerontology | DX: I48.20 Chronic atrial fibrillation, unspecified (principal) | CPT/HCPCS: 85610 ==

== ENCOUNTER 2020-03-25 09:23 | Outpatient (CLI) | payer MEDICAID ==
--- NOTE | 2020-03-25 14:46 | XRAY Report ---
PROCEDURE: Cervical Spine 2 View INDICATIONS: NECK PAIN,CHRONIC TECHNIQUE: 2 view(s) of the cervical spine were acquired. COMPARISON: None. FINDINGS: Bones: No fractures or dislocations to the C7-T1 level. The lateral masses of C1 appear intact on t he odontoid view. No suspicious bony lesions. There is overall straightening of normal cervical cur vature. Multilevel uncovertebral arthropathy is present. Nonbridging anterior osteophytes are present at C5 and C6. Minimal disc space narrowing is noted at C5-6. Soft tissues: No prevertebral soft tissue swelling. IMPRESSION: Overall cervical straightening with uncovertebral arthropathy. Reviewed by: Ledy Mott MD on 03/25/2020 2:44 PM PDT Approved by: Ledy Mott MD on 03/25/2020 2:44 PM PDT Station ID: [id number]
== END 2020-03-25 09:24 | disposition home or self-care (01) ==
LOC: DI 09:23
PROVIDERS: ATTEND Nurse Practitioner
DX: M54.2 Cervicalgia (principal); G89.29 Other chronic pain
CPT/HCPCS: 72040

== ENCOUNTER 2020-03-28 08:48 | Outpatient (CLI) | payer MEDICAID ==
[2020-03-28 11:55] LABS: BASOPHILS % (AUTO) 0.5 %; EOSINOPHILS # (AUTO) 0.1 10^3/uL (0.0-0.7); EOSINOPHILS % (AUTO) 2.1 %; HGB - HEMOGLOBIN 15.7 g/dL (14.0-18.0); LYMPHOCYTES # (AUTO) 1.2 10^3/uL (1.5-3.5); LYMPHOCYTES % (AUTO) 18.9 %; MEAN CORPUSCULAR HEMOGLOBIN 30.6 pg (27.0-31.0); MEAN CORPUSCULAR HGB CONC 31.7 g/dL (32.0-36.0); MEAN CORPUSCULAR VOLUME 96.5 fL (80.0-94.0); MEAN PLATELET VOLUME 10.5 fL (7.4-11.4); MONOCYTES # (AUTO) 0.5 10^3/uL (0.0-1.0); MONOCYTES % (AUTO) 8.4 %; NEUTROPHILS # (AUTO) 4.2 10^3/uL (1.5-6.6); NEUTROPHILS % (AUTO) 69.4 %; PLT - PLATELET COUNT 205 10^3/uL (130-450); RED BLOOD COUNT 5.13 10^6/uL (4.70-6.10); RED CELL DISTRIBUTION WIDTH 13.4 % (12.0-15.0); WHITE BLOOD COUNT 6.1 x10^3/uL (4.8-10.8)
[2020-03-28 12:15] LABS: ALBUMIN 4.1 g/dL (3.2-5.5); ALBUMIN/GLOBULIN RATIO 1.5 (1.0-2.2); ALKALINE PHOSPHATASE 64 IU/L (42-121); ALT ALANINE AMINOTRANSFERASE 27 IU/L (10-60); AST ASPARTATE AMINOTRANSFERASE 22 IU/L (10-42); BILIRUBIN,TOTAL 0.7 mg/dL (0.2-1.0); BUN - BLOOD UREA NITROGEN 14 mg/dL (6-20); CALCIUM 9.2 mg/dL (8.5-10.3); CARBON DIOXIDE - CO2 28 mmol/L (21-32); CHLORIDE 104 mmol/L (101-111); CHOL/HDL RATIO 2.9 (<5.0); CHOLESTEROL 153 mg/dL; CREATININE 0.8 mg/dL (0.6-1.2); GLUCOSE 136 mg/dL (70-100); HDL CHOLESTEROL 52 mg/dL; LDL CHOLESTEROL,CALCULATED 64 mg/dL; LDL/HDL RATIO 1.2 (<3.6); SODIUM 140 mmol/L (135-145); TOTAL PROTEIN 6.9 g/dL (6.7-8.2); VLDL CHOLESTEROL 37 mg/dL
[2020-03-28 12:30] LABS: HEMOGLOBIN A1c% 6.1 % (4.27-6.07)
== END 2020-03-28 08:49 | disposition home or self-care (01) ==
LOC: LAB.WCP 08:48
PROVIDERS: ATTEND Nurse Practitioner
DX: E11.9 Type 2 diabetes mellitus without complications (principal); I10 Essential (primary) hypertension; E78.5 Hyperlipidemia, unspecified; I48.91 Unspecified atrial fibrillation; Z79.01 Long term (current) use of anticoagulants; I25.10 Atherosclerotic heart disease of native coronary artery without angina pectoris; M10.9 Gout, unspecified; J44.9 Chronic obstructive pulmonary disease, unspecified; Z85.46 Personal history of malignant neoplasm of prostate
CPT/HCPCS: 36415; 80050; 80061; 82043; 82570; 83036; 83721; 84153

== ENCOUNTER 2020-04-04 08:00 | Outpatient (CLI) | payer MEDICAID ==
[2020-04-04 13:39] LABS: MICROALBUM/CREATININE RATIO,UR 4.8 ug/mg (<30.0); MICROALBUMIN,URINE 0.5 mg/dL (0-300.0)
== END 2020-04-04 23:59 | disposition home or self-care (01) ==
LOC: LAB.R 08:00
PROVIDERS: ATTEND Nurse Practitioner
DX: E11.9 Type 2 diabetes mellitus without complications (principal)
CPT/HCPCS: 82043; 82274; 82570

== ENCOUNTER 2020-05-09 10:00 | Outpatient (CLI) | payer MEDICAID | END 2020-05-09 23:59 | disposition home or self-care (01) | LOC: LAB.R 10:00 | PROVIDERS: ATTEND Nurse Practitioner | DX: Z12.11 Encounter for screening for malignant neoplasm of colon (principal) | CPT/HCPCS: 82274 ==

== ENCOUNTER 2020-05-19 08:00 | Outpatient (CLI) | payer MEDICAID | END 2020-05-19 23:59 | disposition home or self-care (01) | LOC: LAB.R 08:00 | PROVIDERS: ATTEND Nurse Practitioner | DX: Z12.11 Encounter for screening for malignant neoplasm of colon (principal) | CPT/HCPCS: 82274 ==

== ENCOUNTER 2020-08-22 08:47 | Outpatient (CLI) | payer MEDICAID ==
[2020-08-22 12:54] LABS: ALBUMIN 4.4 g/dL (3.2-5.5); ALBUMIN/GLOBULIN RATIO 1.6 (1.0-2.2); BILIRUBIN,TOTAL 0.9 mg/dL (0.2-1.0); CALCIUM 9.5 mg/dL (8.5-10.3); CREATININE 0.9 mg/dL (0.6-1.2); TOTAL PROTEIN 7.2 g/dL (6.7-8.2)
[2020-08-22 12:58] LABS: HEMOGLOBIN A1c% 6.2 % (4.27-6.07)
== END 2020-08-22 23:59 | disposition home or self-care (01) ==
LOC: LAB.WCP 08:47
PROVIDERS: ATTEND Nurse Practitioner
DX: E11.9 Type 2 diabetes mellitus without complications (principal)
CPT/HCPCS: 36415; 80053; 83036

== ENCOUNTER 2021-03-13 08:11 | Outpatient (CLI) | payer MEDICAID ==
[2021-03-13 13:26] LABS: BASOPHILS % (AUTO) 0.7 %; EOSINOPHILS # (AUTO) 0.1 10^3/uL (0.0-0.7); EOSINOPHILS % (AUTO) 2.3 %; HCT - HEMATOCRIT 46.4 % (42.0-52.0); HGB - HEMOGLOBIN 14.9 g/dL (14.0-18.0); LYMPHOCYTES # (AUTO) 1.4 10^3/uL (1.5-3.5); LYMPHOCYTES % (AUTO) 22.4 %; MEAN CORPUSCULAR HEMOGLOBIN 30.5 pg (27.0-31.0); MEAN CORPUSCULAR HGB CONC 32.1 g/dL (32.0-36.0); MEAN CORPUSCULAR VOLUME 95.1 fL (80.0-94.0); MEAN PLATELET VOLUME 10.6 fL (7.4-11.4); MONOCYTES # (AUTO) 0.6 10^3/uL (0.0-1.0); MONOCYTES % (AUTO) 9.9 %; NEUTROPHILS # (AUTO) 3.9 10^3/uL (1.5-6.6); NEUTROPHILS % (AUTO) 64.4 %; PLT - PLATELET COUNT 249 10^3/uL (130-450); RED BLOOD COUNT 4.88 10^6/uL (4.70-6.10); RED CELL DISTRIBUTION WIDTH 13.6 % (12.0-15.0); WHITE BLOOD COUNT 6.1 x10^3/uL (4.8-10.8)
[2021-03-13 13:54] LABS: THYROID STIMULATING HORMONE 2.63 uIU/mL (0.34-5.60)
[2021-03-13 14:06] LABS: ESTIMATED AVERAGE GLUCOSE 128 mg/dL (70-100); HEMOGLOBIN A1c% 6.1 % (4.27-6.07)
[2021-03-13 14:14] LABS: ALBUMIN 4.6 g/dL (3.2-5.5); ALBUMIN/GLOBULIN RATIO 1.6 (1.0-2.2); ALKALINE PHOSPHATASE 53 IU/L (42-121); ALT ALANINE AMINOTRANSFERASE 25 IU/L (10-60); AST ASPARTATE AMINOTRANSFERASE 20 IU/L (10-42); BILIRUBIN,TOTAL 0.9 mg/dL (0.2-1.0); BUN - BLOOD UREA NITROGEN 12 mg/dL (6-20); CALCIUM 9.5 mg/dL (8.5-10.3); CARBON DIOXIDE - CO2 26 mmol/L (21-32); CHLORIDE 104 mmol/L (101-111); CHOL/HDL RATIO 3.4 (<5.0); CHOLESTEROL 169 mg/dL; CREATININE 0.9 mg/dL (0.6-1.2); GFR - MDRD 85 (>89); GLUCOSE 116 mg/dL (70-100); HDL CHOLESTEROL 49 mg/dL; LDL CHOLESTEROL,CALCULATED 90 mg/dL; LDL/HDL RATIO 1.8 (<3.6); POTASSIUM 5.1 mmol/L (3.5-5.0); SODIUM 140 mmol/L (135-145); TOTAL PROTEIN 7.4 g/dL (6.7-8.2); TRIGLYCERIDES 148 mg/dL; URIC ACID 8.1 mg/dL (2.6-7.2); VLDL CHOLESTEROL 30 mg/dL
[2021-03-13 14:44] LABS: CREATININE,URINE 55.3 mg/dL; MICROALBUM/CREATININE RATIO,UR 5.4 ug/mg (<30.0); MICROALBUMIN,URINE 0.3 mg/dL (0-300.0)
== END 2021-03-13 08:12 | disposition home or self-care (01) ==
LOC: LAB.N 08:11
PROVIDERS: ATTEND Nurse Practitioner
DX: E11.9 Type 2 diabetes mellitus without complications (principal); E78.5 Hyperlipidemia, unspecified; Z85.46 Personal history of malignant neoplasm of prostate; I48.91 Unspecified atrial fibrillation; M10.9 Gout, unspecified
CPT/HCPCS: 36415; 80050; 80053; 80061; 82043; 82570; 83036; 83721; 84153; 84550; 85025

== ENCOUNTER 2021-09-14 09:33 | Outpatient (CLI) | payer MEDICAID ==
[2021-09-14 14:25] LABS: ESTIMATED AVERAGE GLUCOSE 140 mg/dL (70-100); HEMOGLOBIN A1c% 6.5 % (4.27-6.07)
== END 2021-09-14 09:34 | disposition home or self-care (01) ==
LOC: LAB.N 09:33
PROVIDERS: ATTEND Nurse Practitioner
DX: E11.9 Type 2 diabetes mellitus without complications (principal); M10.9 Gout, unspecified
CPT/HCPCS: 36415; 83036; 84550

== ENCOUNTER 2021-09-18 08:00 | Outpatient (CLI) | payer MEDICARE, MEDICAID | END 2021-09-18 23:59 | disposition home or self-care (01) | LOC: LAB.WCP 08:00 | PROVIDERS: ATTEND Nurse Practitioner | DX: I48.91 Unspecified atrial fibrillation (principal); Z79.01 Long term (current) use of anticoagulants ==

== ENCOUNTER 2021-09-25 08:00 | Outpatient (CLI) | payer MEDICARE, MEDICAID | END 2021-09-25 23:59 | disposition home or self-care (01) | LOC: LAB.WCP 08:00 | PROVIDERS: ATTEND Nurse Practitioner Family | DX: I48.91 Unspecified atrial fibrillation (principal); Z79.01 Long term (current) use of anticoagulants ==

== ENCOUNTER 2021-10-16 08:00 | Outpatient (CLI) | payer MEDICARE, MEDICAID | END 2021-10-16 23:59 | disposition home or self-care (01) | LOC: LAB.WCP 08:00 | PROVIDERS: ATTEND Nurse Practitioner | DX: I48.91 Unspecified atrial fibrillation (principal); Z79.01 Long term (current) use of anticoagulants ==

== ENCOUNTER 2021-10-30 08:00 | Outpatient (CLI) | payer MEDICARE, MEDICAID | END 2021-10-30 23:59 | disposition home or self-care (01) | LOC: LAB.WCP 08:00 | PROVIDERS: ATTEND Nurse Practitioner | DX: I48.91 Unspecified atrial fibrillation (principal); Z79.01 Long term (current) use of anticoagulants ==

== ENCOUNTER 2021-11-06 08:00 | Outpatient (CLI) | payer MEDICARE, MEDICAID | END 2021-11-06 23:59 | disposition home or self-care (01) | LOC: LAB.WCP 08:00 | PROVIDERS: ATTEND Nurse Practitioner | DX: I48.91 Unspecified atrial fibrillation (principal); Z79.01 Long term (current) use of anticoagulants ==

== ENCOUNTER 2021-11-13 08:00 | Outpatient (CLI) | payer MEDICARE, MEDICAID | END 2021-11-13 23:59 | disposition home or self-care (01) | LOC: LAB.WCP 08:00 | PROVIDERS: ATTEND Nurse Practitioner | DX: I48.91 Unspecified atrial fibrillation (principal); Z79.01 Long term (current) use of anticoagulants ==

== ENCOUNTER 2021-12-11 08:00 | Outpatient (CLI) | payer MEDICARE, MEDICAID | END 2021-12-11 23:59 | disposition home or self-care (01) | LOC: LAB.WCP 08:00 | PROVIDERS: ATTEND Nurse Practitioner | DX: I48.91 Unspecified atrial fibrillation (principal); Z79.01 Long term (current) use of anticoagulants ==

== ENCOUNTER → 2021-12-18 | Outpatient (CLI) | payer MEDICARE, MEDICAID | LOC: LAB.WCP 08:00 | PROVIDERS: ATTEND Nurse Practitioner | DX: I48.91 Unspecified atrial fibrillation (principal); Z79.01 Long term (current) use of anticoagulants ==

== ENCOUNTER 2021-12-24 10:58 | Outpatient (CLI) | payer MEDICARE, MEDICAID | END 2021-12-24 10:59 | disposition home or self-care (01) | LOC: LAB.N 10:58 | PROVIDERS: ATTEND Nurse Practitioner | DX: Z79.01 Long term (current) use of anticoagulants (principal) | CPT/HCPCS: 36416; 85610 ==

== ENCOUNTER → 2022-01-01 | Outpatient (CLI) | payer MEDICARE, MEDICAID | LOC: LAB.WCP 08:00 | PROVIDERS: ATTEND Nurse Practitioner | DX: I48.91 Unspecified atrial fibrillation (principal); Z79.01 Long term (current) use of anticoagulants ==

== ENCOUNTER 2022-02-26 08:00 | Outpatient (CLI) | payer MEDICARE, MEDICAID | END 2022-02-26 08:01 | disposition home or self-care (01) | LOC: LAB.WCP 08:00 | PROVIDERS: ATTEND Nurse Practitioner | DX: I48.91 Unspecified atrial fibrillation (principal); Z79.01 Long term (current) use of anticoagulants ==

== ENCOUNTER 2022-03-19 08:00 | Outpatient (CLI) | payer MEDICARE, MEDICAID | END 2022-03-19 23:59 | disposition home or self-care (01) | LOC: LAB.WCP 08:00 | PROVIDERS: ATTEND Nurse Practitioner | DX: I48.91 Unspecified atrial fibrillation (principal); Z79.01 Long term (current) use of anticoagulants ==

== ENCOUNTER 2022-03-26 08:00 | Outpatient (CLI) | payer MEDICARE, MEDICAID | END 2022-03-26 23:59 | disposition home or self-care (01) | LOC: LAB.WCP 08:00 | PROVIDERS: ATTEND Nurse Practitioner | DX: I48.91 Unspecified atrial fibrillation (principal); Z79.01 Long term (current) use of anticoagulants ==

== ENCOUNTER 2022-04-02 08:00 | Outpatient (CLI) | payer MEDICARE, MEDICAID | END 2022-04-02 23:59 | disposition home or self-care (01) | LOC: LAB.WCP 08:00 | PROVIDERS: ATTEND Nurse Practitioner | DX: I48.91 Unspecified atrial fibrillation (principal); Z79.01 Long term (current) use of anticoagulants ==

== ENCOUNTER 2022-04-16 08:00 | Outpatient (CLI) | payer MEDICARE, MEDICAID | END 2022-04-16 23:59 | disposition home or self-care (01) | LOC: LAB.WCP 08:00 | PROVIDERS: ATTEND Nurse Practitioner | DX: I48.91 Unspecified atrial fibrillation (principal); Z79.01 Long term (current) use of anticoagulants ==

== ENCOUNTER 2022-04-30 08:00 | Outpatient (CLI) | payer MEDICARE, MEDICAID | END 2022-04-30 23:59 | disposition home or self-care (01) | LOC: LAB.WCP 08:00 | PROVIDERS: ATTEND Nurse Practitioner | DX: I48.91 Unspecified atrial fibrillation (principal); Z79.01 Long term (current) use of anticoagulants ==

== ENCOUNTER 2022-05-14 08:00 | Outpatient (CLI) | payer MEDICARE, MEDICAID | END 2022-05-14 23:59 | disposition home or self-care (01) | LOC: LAB.WCP 08:00 | PROVIDERS: ATTEND Nurse Practitioner | DX: I48.91 Unspecified atrial fibrillation (principal); Z79.01 Long term (current) use of anticoagulants ==

== ENCOUNTER 2022-06-04 09:39 | Outpatient (CLI) | payer MEDICARE, MEDICAID | END 2022-06-04 09:40 | disposition home or self-care (01) | LOC: LAB 09:39 | PROVIDERS: ATTEND Nurse Practitioner | DX: I48.91 Unspecified atrial fibrillation (principal); Z79.01 Long term (current) use of anticoagulants | CPT/HCPCS: 36416; 85610 ==

== ENCOUNTER → 2022-06-09 | Outpatient (CLI) | payer MEDICARE, MEDICAID | LOC: LAB.WCP 08:00 | PROVIDERS: ATTEND Nurse Practitioner | DX: I48.91 Unspecified atrial fibrillation (principal); Z79.01 Long term (current) use of anticoagulants ==

== ENCOUNTER → 2022-06-18 | Outpatient (CLI) | payer MEDICARE, MEDICAID | LOC: LAB.WCP 08:00 | PROVIDERS: ATTEND Nurse Practitioner | DX: I48.91 Unspecified atrial fibrillation (principal); Z79.01 Long term (current) use of anticoagulants ==

== ENCOUNTER 2022-07-02 08:00 | Outpatient (CLI) | payer MEDICARE, MEDICAID | END 2022-07-02 23:59 | disposition home or self-care (01) | LOC: LAB.WCP 08:00 | PROVIDERS: ATTEND Nurse Practitioner | DX: I48.91 Unspecified atrial fibrillation (principal); Z79.01 Long term (current) use of anticoagulants ==

== ENCOUNTER → 2022-07-16 | Outpatient (CLI) | payer MEDICARE, MEDICAID | LOC: LAB.WCP 08:00 | PROVIDERS: ATTEND Nurse Practitioner | DX: I48.91 Unspecified atrial fibrillation (principal); Z79.01 Long term (current) use of anticoagulants ==

== ENCOUNTER 2022-07-23 08:17 | Outpatient (CLI) | payer MEDICARE, MEDICAID ==
[2022-07-23 12:53] LABS: BASOPHILS % (AUTO) 0.5 %; EOSINOPHILS # (AUTO) 0.2 10^3/uL (0.0-0.7); EOSINOPHILS % (AUTO) 1.9 %; HCT - HEMATOCRIT 45.9 % (42.0-52.0); HGB - HEMOGLOBIN 14.5 g/dL (14.0-18.0); LYMPHOCYTES # (AUTO) 1.3 10^3/uL (1.5-3.5); LYMPHOCYTES % (AUTO) 14.8 %; MEAN CORPUSCULAR HEMOGLOBIN 29.7 pg (27.0-31.0); MEAN CORPUSCULAR HGB CONC 31.6 g/dL (32.0-36.0); MEAN CORPUSCULAR VOLUME 93.9 fL (80.0-94.0); MEAN PLATELET VOLUME 10.6 fL (7.4-11.4); MONOCYTES # (AUTO) 0.8 10^3/uL (0.0-1.0); NEUTROPHILS # (AUTO) 6.2 10^3/uL (1.5-6.6); NEUTROPHILS % (AUTO) 73.3 %; PLT - PLATELET COUNT 263 10^3/uL (130-450); RED BLOOD COUNT 4.89 10^6/uL (4.70-6.10); RED CELL DISTRIBUTION WIDTH 14.1 % (12.0-15.0); WHITE BLOOD COUNT 8.4 x10^3/uL (4.8-10.8)
[2022-07-23 13:29] LABS: ALBUMIN 4.2 g/dL (3.2-5.5); ALBUMIN/GLOBULIN RATIO 1.4 (1.0-2.2); ALKALINE PHOSPHATASE 68 IU/L (42-121); ALT ALANINE AMINOTRANSFERASE 30 IU/L (10-60); AST ASPARTATE AMINOTRANSFERASE 21 IU/L (10-42); BILIRUBIN,TOTAL 1.1 mg/dL (0.2-1.0); BUN - BLOOD UREA NITROGEN 12 mg/dL (6-20); CALCIUM 9.1 mg/dL (8.5-10.3); CARBON DIOXIDE - CO2 30 mmol/L (21-32); CHLORIDE 101 mmol/L (101-111); CHOLESTEROL 118 mg/dL; CREATININE 0.8 mg/dL (0.6-1.2); GFR - MDRD 97 (>89); GLUCOSE 142 mg/dL (70-100); HDL CHOLESTEROL 40 mg/dL; LDL CHOLESTEROL,CALCULATED 48 mg/dL; LDL/HDL RATIO 1.2 (<3.6); POTASSIUM 4.7 mmol/L (3.5-5.0); SODIUM 139 mmol/L (135-145); TOTAL PROTEIN 7.2 g/dL (6.7-8.2); TRIGLYCERIDES 151 mg/dL; URIC ACID 8.1 mg/dL (2.6-7.2); VLDL CHOLESTEROL 30 mg/dL
[2022-07-23 13:35] LABS: CREATININE,URINE 200.3 mg/dL; MICROALBUM/CREATININE RATIO,UR 7.5 ug/mg (<30.0); MICROALBUMIN,URINE 1.5 mg/dL (0-300.0)
[2022-07-23 13:42] LABS: THYROID STIMULATING HORMONE 2.44 uIU/mL (0.34-5.60)
[2022-07-23 14:10] LABS: ESTIMATED AVERAGE GLUCOSE 134 mg/dL (70-100); HEMOGLOBIN A1c% 6.3 % (4.27-6.07)
== END 2022-07-23 08:18 | disposition home or self-care (01) ==
LOC: LAB.N 08:17
PROVIDERS: ATTEND Nurse Practitioner
DX: I10 Essential (primary) hypertension (principal); E78.5 Hyperlipidemia, unspecified; E11.9 Type 2 diabetes mellitus without complications; Z85.46 Personal history of malignant neoplasm of prostate; I48.91 Unspecified atrial fibrillation; M10.9 Gout, unspecified
CPT/HCPCS: 36415; 80053; 80061; 82043; 82570; 83036; 83721; 84153; 84443; 84550; 85025

== ENCOUNTER 2022-07-30 08:00 | Outpatient (CLI) | payer MEDICARE, MEDICAID | END 2022-07-30 23:59 | disposition home or self-care (01) | LOC: LAB.WCP 08:00 | PROVIDERS: ATTEND Family Medicine | DX: I48.91 Unspecified atrial fibrillation (principal); Z79.01 Long term (current) use of anticoagulants ==

== ENCOUNTER 2022-08-06 08:00 | Outpatient (CLI) | payer MEDICARE, MEDICAID | END 2022-08-06 23:59 | disposition home or self-care (01) | LOC: LAB.WCP 08:00 | PROVIDERS: ATTEND Nurse Practitioner | DX: I48.91 Unspecified atrial fibrillation (principal); Z79.01 Long term (current) use of anticoagulants ==

== ENCOUNTER 2022-08-13 08:00 | Outpatient (CLI) | payer MEDICARE, MEDICAID | END 2022-08-13 23:59 | disposition home or self-care (01) | LOC: LAB.WCP 08:00 | PROVIDERS: ATTEND Family Medicine | DX: I48.91 Unspecified atrial fibrillation (principal); Z79.01 Long term (current) use of anticoagulants ==

== ENCOUNTER 2022-09-10 08:00 | Outpatient (CLI) | payer MEDICARE, MEDICAID | END 2022-09-10 23:59 | disposition home or self-care (01) | LOC: LAB.N 08:00 | PROVIDERS: ATTEND Nurse Practitioner | DX: I48.91 Unspecified atrial fibrillation (principal); Z79.01 Long term (current) use of anticoagulants ==

== ENCOUNTER 2022-09-24 08:00 | Outpatient (CLI) | payer MEDICARE, MEDICAID | END 2022-09-24 23:59 | disposition home or self-care (01) | LOC: LAB.N 08:00 | PROVIDERS: ATTEND Nurse Practitioner | DX: I48.91 Unspecified atrial fibrillation (principal); Z79.01 Long term (current) use of anticoagulants ==

== ENCOUNTER 2022-10-08 08:00 | Outpatient (CLI) | payer MEDICARE, MEDICAID | END 2022-10-08 23:59 | disposition home or self-care (01) | LOC: LAB.N 08:00 | PROVIDERS: ATTEND Nurse Practitioner | DX: I48.91 Unspecified atrial fibrillation (principal); Z79.01 Long term (current) use of anticoagulants ==

== ENCOUNTER 2022-10-15 08:00 | Outpatient (CLI) | payer MEDICARE, MEDICAID | END 2022-10-15 23:59 | disposition home or self-care (01) | LOC: LAB.N 08:00 | PROVIDERS: ATTEND Nurse Practitioner | DX: I48.91 Unspecified atrial fibrillation (principal); Z79.01 Long term (current) use of anticoagulants ==

== ENCOUNTER 2022-10-22 08:00 | Outpatient (CLI) | payer MEDICARE, MEDICAID | END 2022-10-22 23:59 | disposition home or self-care (01) | LOC: LAB.N 08:00 | PROVIDERS: ATTEND Nurse Practitioner | DX: I48.91 Unspecified atrial fibrillation (principal); Z79.01 Long term (current) use of anticoagulants ==

== ENCOUNTER 2022-10-29 08:00 | Outpatient (CLI) | payer MEDICARE, MEDICAID | END 2022-10-29 23:59 | disposition home or self-care (01) | LOC: LAB.WCP 08:00 | PROVIDERS: ATTEND Nurse Practitioner | DX: I48.91 Unspecified atrial fibrillation (principal); Z79.01 Long term (current) use of anticoagulants; Z51.81 Encounter for therapeutic drug level monitoring ==

== ENCOUNTER 2022-11-05 08:00 | Outpatient (CLI) | payer MEDICARE, MEDICAID | END 2022-11-05 23:59 | disposition home or self-care (01) | LOC: LAB.N 08:00 | PROVIDERS: ATTEND Nurse Practitioner | DX: I48.91 Unspecified atrial fibrillation (principal); Z79.01 Long term (current) use of anticoagulants ==

== ENCOUNTER 2022-11-12 08:00 | Outpatient (CLI) | payer MEDICARE, MEDICAID | END 2022-11-12 23:59 | disposition home or self-care (01) | LOC: LAB.N 08:00 | PROVIDERS: ATTEND Nurse Practitioner | DX: I48.91 Unspecified atrial fibrillation (principal); Z79.01 Long term (current) use of anticoagulants ==

== ENCOUNTER 2022-11-19 08:00 | Outpatient (CLI) | payer MEDICARE, MEDICAID | END 2022-11-19 23:59 | disposition home or self-care (01) | LOC: LAB.N 08:00 | PROVIDERS: ATTEND Nurse Practitioner | DX: I48.91 Unspecified atrial fibrillation (principal); Z79.01 Long term (current) use of anticoagulants ==

== ENCOUNTER 2022-11-26 08:00 | Outpatient (CLI) | payer MEDICARE, MEDICAID | END 2022-11-26 23:59 | disposition home or self-care (01) | LOC: LAB.N 08:00 | PROVIDERS: ATTEND Nurse Practitioner | DX: I48.91 Unspecified atrial fibrillation (principal); Z79.01 Long term (current) use of anticoagulants ==

== ENCOUNTER 2022-12-10 09:07 | Outpatient (CLI) | payer MEDICARE, MEDICAID ==
[2022-12-10 13:00] LABS: ESTIMATED AVERAGE GLUCOSE 131 mg/dL (70-100); HEMOGLOBIN A1c% 6.2 % (4.27-6.07)
== END 2022-12-10 09:08 | disposition home or self-care (01) ==
LOC: LAB.N 09:07
PROVIDERS: ATTEND Nurse Practitioner
DX: E11.9 Type 2 diabetes mellitus without complications (principal)
CPT/HCPCS: 36415; 83036

== ENCOUNTER 2022-12-31 08:00 | Outpatient (CLI) | payer MEDICARE, MEDICAID | END 2022-12-31 23:59 | disposition home or self-care (01) | LOC: LAB.N 08:00 | PROVIDERS: ATTEND Nurse Practitioner | DX: I48.91 Unspecified atrial fibrillation (principal); Z79.01 Long term (current) use of anticoagulants ==

== ENCOUNTER 2023-01-07 08:00 | Outpatient (CLI) | payer MEDICARE, MEDICAID | END 2023-01-07 23:59 | disposition home or self-care (01) | LOC: LAB.N 08:00 | PROVIDERS: ATTEND Nurse Practitioner | DX: I48.91 Unspecified atrial fibrillation (principal); Z79.01 Long term (current) use of anticoagulants ==

== ENCOUNTER 2023-01-28 08:00 | Outpatient (CLI) | payer MEDICARE, MEDICAID | END 2023-01-28 23:59 | disposition home or self-care (01) | LOC: LAB.WCP 08:00 | PROVIDERS: ATTEND Nurse Practitioner | DX: I48.91 Unspecified atrial fibrillation (principal); Z79.01 Long term (current) use of anticoagulants ==

== ENCOUNTER 2023-02-04 08:00 | Outpatient (CLI) | payer MEDICARE, MEDICAID | END 2023-02-04 23:59 | disposition home or self-care (01) | LOC: LAB.WCP 08:00 | PROVIDERS: ATTEND Nurse Practitioner | DX: I48.91 Unspecified atrial fibrillation (principal); Z79.01 Long term (current) use of anticoagulants ==

== ENCOUNTER 2023-02-11 08:00 | Outpatient (CLI) | payer MEDICARE, MEDICAID | END 2023-02-11 23:59 | disposition home or self-care (01) | LOC: LAB.N 08:00 | PROVIDERS: ATTEND Nurse Practitioner | DX: I48.91 Unspecified atrial fibrillation (principal); Z79.01 Long term (current) use of anticoagulants ==

== ENCOUNTER 2023-02-18 08:00 | Outpatient (CLI) | payer MEDICARE, MEDICAID | END 2023-02-18 23:59 | disposition home or self-care (01) | LOC: LAB.WCP 08:00 | PROVIDERS: ATTEND Nurse Practitioner | DX: I48.91 Unspecified atrial fibrillation (principal); Z79.01 Long term (current) use of anticoagulants ==

== ENCOUNTER 2023-02-25 08:00 | Outpatient (CLI) | payer MEDICARE, MEDICAID | END 2023-02-25 23:59 | disposition home or self-care (01) | LOC: LAB.WCP 08:00 | PROVIDERS: ATTEND Nurse Practitioner | DX: I48.91 Unspecified atrial fibrillation (principal); Z79.01 Long term (current) use of anticoagulants ==

== ENCOUNTER 2023-03-11 08:00 | Outpatient (CLI) | payer MEDICARE, MEDICAID | END 2023-03-11 23:59 | disposition home or self-care (01) | LOC: LAB.WCP 08:00 | PROVIDERS: ATTEND Nurse Practitioner | DX: I48.91 Unspecified atrial fibrillation (principal); Z79.01 Long term (current) use of anticoagulants ==

== ENCOUNTER 2023-04-22 08:00 | Outpatient (CLI) | payer MEDICARE, MEDICAID | END 2023-04-22 23:59 | disposition home or self-care (01) | LOC: LAB.N 08:00 | PROVIDERS: ATTEND Nurse Practitioner | DX: I48.91 Unspecified atrial fibrillation (principal); Z79.01 Long term (current) use of anticoagulants ==

== ENCOUNTER 2023-04-29 08:00 | Outpatient (CLI) | payer MEDICARE, MEDICAID | END 2023-04-29 23:59 | disposition home or self-care (01) | LOC: LAB.WCP 08:00 | PROVIDERS: ATTEND Nurse Practitioner | DX: I48.91 Unspecified atrial fibrillation (principal); Z79.01 Long term (current) use of anticoagulants ==

== ENCOUNTER 2023-05-20 08:00 | Outpatient (CLI) | payer MEDICARE, MEDICAID | END 2023-05-20 23:59 | disposition home or self-care (01) | LOC: LAB.WCP 08:00 | PROVIDERS: ATTEND Nurse Practitioner | DX: I48.91 Unspecified atrial fibrillation (principal); Z79.01 Long term (current) use of anticoagulants ==

== ENCOUNTER 2023-05-27 08:00 | Outpatient (CLI) | payer MEDICARE, MEDICAID | END 2023-05-27 23:59 | disposition home or self-care (01) | LOC: LAB.N 08:00 | PROVIDERS: ATTEND Nurse Practitioner | DX: I48.91 Unspecified atrial fibrillation (principal); Z79.01 Long term (current) use of anticoagulants ==

== ENCOUNTER 2023-06-03 08:00 | Outpatient (CLI) | payer MEDICARE, MEDICAID | END 2023-06-03 23:59 | disposition home or self-care (01) | LOC: LAB.WCP 08:00 | PROVIDERS: ATTEND Nurse Practitioner | DX: Z51.81 Encounter for therapeutic drug level monitoring (principal); I48.91 Unspecified atrial fibrillation; Z79.01 Long term (current) use of anticoagulants ==

== ENCOUNTER 2023-06-10 08:00 | Outpatient (CLI) | payer MEDICARE, MEDICAID | END 2023-06-10 08:01 | disposition home or self-care (01) | LOC: LAB.N 08:00 | PROVIDERS: ATTEND Nurse Practitioner | DX: I48.91 Unspecified atrial fibrillation (principal); Z79.01 Long term (current) use of anticoagulants ==

== ENCOUNTER 2023-06-17 08:00 | Outpatient (CLI) | payer MEDICARE, MEDICAID | END 2023-06-17 08:01 | disposition home or self-care (01) | LOC: LAB.N 08:00 | PROVIDERS: ATTEND Nurse Practitioner | DX: I48.91 Unspecified atrial fibrillation (principal); Z79.01 Long term (current) use of anticoagulants ==

== ENCOUNTER → 2023-07-01 | Outpatient (CLI) | payer MEDICARE, MEDICAID | LOC: LAB.N 08:00 | PROVIDERS: ATTEND Nurse Practitioner | DX: I48.91 Unspecified atrial fibrillation (principal); Z79.01 Long term (current) use of anticoagulants ==

== ENCOUNTER 2023-07-08 08:00 | Outpatient (CLI) | payer MEDICARE, MEDICAID | END 2023-07-08 08:01 | disposition home or self-care (01) | LOC: LAB.WCP 08:00 | PROVIDERS: ATTEND Nurse Practitioner | DX: I48.91 Unspecified atrial fibrillation (principal); Z79.01 Long term (current) use of anticoagulants ==

== ENCOUNTER 2023-07-08 10:28 | Outpatient (CLI) | payer MEDICARE, MEDICAID ==
[2023-07-08 18:04] LABS: ESTIMATED AVERAGE GLUCOSE 137 mg/dL (70-100); HEMOGLOBIN A1c% 6.4 % (4.27-6.07)
== END 2023-07-08 10:29 | disposition home or self-care (01) ==
LOC: LAB.N 10:28
PROVIDERS: ATTEND Nurse Practitioner
DX: E11.9 Type 2 diabetes mellitus without complications (principal); I48.91 Unspecified atrial fibrillation; Z79.01 Long term (current) use of anticoagulants
CPT/HCPCS: 36415; 83036

== ENCOUNTER 2023-07-22 08:00 | Outpatient (CLI) | payer MEDICARE, MEDICAID | END 2023-07-22 08:01 | disposition home or self-care (01) | LOC: LAB.N 08:00 | PROVIDERS: ATTEND Nurse Practitioner | DX: I48.91 Unspecified atrial fibrillation (principal); Z79.01 Long term (current) use of anticoagulants ==

== ENCOUNTER 2023-08-05 08:00 | Outpatient (CLI) | payer MEDICARE, MEDICAID | END 2023-08-05 08:01 | disposition home or self-care (01) | LOC: LAB.WCP 08:00 | PROVIDERS: ATTEND Nurse Practitioner | DX: I48.91 Unspecified atrial fibrillation (principal); Z79.01 Long term (current) use of anticoagulants ==

== ENCOUNTER 2023-08-19 08:00 | Outpatient (CLI) | payer MEDICARE, MEDICAID | END 2023-08-19 08:01 | disposition home or self-care (01) | LOC: LAB.WCP 08:00 | PROVIDERS: ATTEND Nurse Practitioner | DX: I48.91 Unspecified atrial fibrillation (principal); Z79.01 Long term (current) use of anticoagulants ==

== ENCOUNTER → 2023-08-26 | Outpatient (CLI) | payer MEDICARE, MEDICAID | LOC: LAB.N 08:00 | PROVIDERS: ATTEND Nurse Practitioner | DX: I48.91 Unspecified atrial fibrillation (principal); Z79.01 Long term (current) use of anticoagulants ==

== ENCOUNTER 2023-09-02 08:00 | Outpatient (CLI) | payer MEDICARE, MEDICAID | END 2023-09-02 08:01 | disposition home or self-care (01) | LOC: LAB.WCP 08:00 | PROVIDERS: ATTEND Nurse Practitioner | DX: I48.91 Unspecified atrial fibrillation (principal); Z79.01 Long term (current) use of anticoagulants ==

== ENCOUNTER 2023-09-09 08:00 | Outpatient (CLI) | payer MEDICARE, MEDICAID | END 2023-09-09 08:01 | disposition home or self-care (01) | LOC: LAB.N 08:00 | PROVIDERS: ATTEND Nurse Practitioner | DX: I48.91 Unspecified atrial fibrillation (principal); Z79.01 Long term (current) use of anticoagulants ==

== ENCOUNTER 2023-09-16 08:00 | Outpatient (CLI) | payer MEDICARE, MEDICAID | END 2023-09-16 08:01 | disposition home or self-care (01) | LOC: LAB.N 08:00 | PROVIDERS: ATTEND Nurse Practitioner | DX: I48.91 Unspecified atrial fibrillation (principal); Z79.01 Long term (current) use of anticoagulants ==

== ENCOUNTER 2023-09-23 08:00 | Outpatient (CLI) | payer MEDICARE, MEDICAID | END 2023-09-23 08:01 | disposition home or self-care (01) | LOC: LAB.WCP 08:00 | PROVIDERS: ATTEND Nurse Practitioner | DX: I48.91 Unspecified atrial fibrillation (principal); Z79.01 Long term (current) use of anticoagulants ==

== ENCOUNTER 2023-09-30 08:00 | Outpatient (CLI) | payer MEDICARE, MEDICAID | END 2023-09-30 08:01 | disposition home or self-care (01) | LOC: LAB.N 08:00 | PROVIDERS: ATTEND Nurse Practitioner | DX: I48.91 Unspecified atrial fibrillation (principal); Z79.01 Long term (current) use of anticoagulants ==

== ENCOUNTER 2023-10-07 08:00 | Outpatient (CLI) | payer MEDICARE, MEDICAID | END 2023-10-07 08:01 | disposition home or self-care (01) | LOC: LAB.N 08:00 | PROVIDERS: ATTEND Nurse Practitioner | DX: I48.91 Unspecified atrial fibrillation (principal); Z79.01 Long term (current) use of anticoagulants ==

== ENCOUNTER 2023-10-14 08:00 | Outpatient (CLI) | payer MEDICARE, MEDICAID | END 2023-10-14 08:01 | disposition home or self-care (01) | LOC: LAB.WCP 08:00 | PROVIDERS: ATTEND Nurse Practitioner | DX: I48.91 Unspecified atrial fibrillation (principal); Z79.01 Long term (current) use of anticoagulants; E11.9 Type 2 diabetes mellitus without complications | CPT/HCPCS: 36415; 83036 ==

== ENCOUNTER 2023-10-21 08:00 | Outpatient (CLI) | payer MEDICARE, MEDICAID | END 2023-10-21 08:01 | disposition home or self-care (01) | LOC: LAB.S 08:00 | PROVIDERS: ATTEND Nurse Practitioner | DX: I48.91 Unspecified atrial fibrillation (principal); Z79.01 Long term (current) use of anticoagulants ==

== ENCOUNTER → 2023-11-04 | Outpatient (CLI) | payer MEDICARE, MEDICAID | LOC: LAB.WCP 08:00 | PROVIDERS: ATTEND Nurse Practitioner | DX: I48.91 Unspecified atrial fibrillation (principal); Z79.01 Long term (current) use of anticoagulants ==

== ENCOUNTER 2023-11-11 08:00 | Outpatient (CLI) | payer MEDICARE, MEDICAID | END 2023-11-11 08:01 | disposition home or self-care (01) | LOC: LAB.WCP 08:00 | PROVIDERS: ATTEND Nurse Practitioner | DX: I48.91 Unspecified atrial fibrillation (principal); Z79.01 Long term (current) use of anticoagulants ==

== ENCOUNTER 2023-11-25 08:00 | Outpatient (CLI) | payer MEDICARE, MEDICAID | END 2023-11-25 08:01 | disposition home or self-care (01) | LOC: LAB.WCP 08:00 | PROVIDERS: ATTEND Nurse Practitioner | DX: I48.91 Unspecified atrial fibrillation (principal); Z79.01 Long term (current) use of anticoagulants ==

== ENCOUNTER 2023-12-02 08:00 | Outpatient (CLI) | payer MEDICARE, MEDICAID | END 2023-12-02 23:59 | disposition home or self-care (01) | LOC: LAB.WCP 08:00 | PROVIDERS: ATTEND Nurse Practitioner | DX: I48.91 Unspecified atrial fibrillation (principal); Z79.01 Long term (current) use of anticoagulants ==

== ENCOUNTER 2023-12-23 08:00 | Outpatient (CLI) | payer MEDICARE, MEDICAID | END 2023-12-23 23:59 | disposition home or self-care (01) | LOC: LAB.WCP 08:00 | PROVIDERS: ATTEND Nurse Practitioner | DX: I48.91 Unspecified atrial fibrillation (principal); Z79.01 Long term (current) use of anticoagulants ==

== ENCOUNTER 2024-01-13 08:00 | Outpatient (CLI) | payer MEDICARE, MEDICAID | END 2024-01-13 23:59 | disposition home or self-care (01) | LOC: LAB.WCP 08:00 | PROVIDERS: ATTEND Nurse Practitioner | DX: I48.91 Unspecified atrial fibrillation (principal); Z79.01 Long term (current) use of anticoagulants ==

== ENCOUNTER 2024-02-24 08:00 | Outpatient (CLI) | payer MEDICARE, MEDICAID | END 2024-02-24 23:59 | disposition home or self-care (01) | LOC: LAB.WCP 08:00 | PROVIDERS: ATTEND Nurse Practitioner | DX: I48.91 Unspecified atrial fibrillation (principal); Z79.01 Long term (current) use of anticoagulants ==

== ENCOUNTER 2024-03-02 08:00 | Outpatient (CLI) | payer MEDICARE, MEDICAID | END 2024-03-02 23:59 | disposition home or self-care (01) | LOC: LAB.WCP 08:00 | PROVIDERS: ATTEND Nurse Practitioner | DX: I48.91 Unspecified atrial fibrillation (principal); Z79.01 Long term (current) use of anticoagulants ==

== ENCOUNTER 2024-03-09 08:00 | Outpatient (CLI) | payer MEDICARE, MEDICAID | END 2024-03-09 23:59 | disposition home or self-care (01) | LOC: LAB.WCP 08:00 | PROVIDERS: ATTEND Nurse Practitioner | DX: I48.91 Unspecified atrial fibrillation (principal); Z79.01 Long term (current) use of anticoagulants ==

== ENCOUNTER 2024-03-16 08:00 | Outpatient (CLI) | payer MEDICARE, MEDICAID | END 2024-03-16 23:59 | disposition home or self-care (01) | LOC: LAB.WCP 08:00 | PROVIDERS: ATTEND Nurse Practitioner | DX: I48.91 Unspecified atrial fibrillation (principal); Z79.01 Long term (current) use of anticoagulants ==

== ENCOUNTER 2024-03-23 08:00 | Outpatient (CLI) | payer MEDICARE, MEDICAID | END 2024-03-23 23:59 | disposition home or self-care (01) | LOC: LAB.N 08:00 | PROVIDERS: ATTEND Nurse Practitioner | DX: I48.91 Unspecified atrial fibrillation (principal); Z79.01 Long term (current) use of anticoagulants ==